=== PATIENT | female | born 1965 | race Caucasian/White ===

== ENCOUNTER → 2017-02-01 | Outpatient (CLI) | payer BC | END | disposition home or self-care (01) | LOC: CFH 07:21 | PROVIDERS: ATTEND Internal Medicine Hematology & Oncology | DX: D18.03 Hemangioma of intra-abdominal structures (principal); D69.3 Immune thrombocytopenic purpura; Z90.49 Acquired absence of other specified parts of digestive tract | CPT/HCPCS: 76700 ==

== ENCOUNTER 2017-04-01 12:09 | Inpatient (IN) | payer BC ==
[~2017-04-01] VITALS: Ht 165.1 cm; Wt 81.8 kg
[~2017-04-01 12:09] MED LIST: ATEN25TA PO; PRED20TA PO
[2017-04-01] MEDS ORDERED: SODIUM CHLORIDE 0.9% 1,000 ML IV ONE ×2 (13:05→14:49)
[2017-04-01 13:55] LABS: BLOOD UREA NITROGEN 7 mg/dL (7-18)
[2017-04-01] MEDS ORDERED: RITU10VI IV (13:55)
[2017-04-01 13:58] LABS: ASPARTATE AMINO TRANSFERASE 11 U/L (15-37)
[2017-04-01 14:14] LABS: HEMATOCRIT 45.7 % (34.6-47.8); HEMOGLOBIN 14.9 g/dL (11.7-16.4); WHITE BLOOD COUNT 8.2 x10^3/uL (3.4-10)
[2017-04-01] MEDS ORDERED: HYDROmorphone 1 MG/ML, 1ML ONE ×2 (14:48→15:45)
[2017-04-01] MEDS ORDERED: ONDANSETRON 2MG/ML, 2ML ONE (14:58)
[2017-04-01] MEDS ORDERED: SODIUM CHLORIDE 0.9% 1,000ML IVBOLUS ONE (15:00)
[2017-04-01] MEDS ORDERED: HYDROCORTISONE 100 MG INJ. IVPush ONE (15:00)
[2017-04-01] MEDS ORDERED: SODIUM CHLORIDE FLUSH 10ML SYR IVF ONE (15:00)
[2017-04-01] MEDS ORDERED: ONDANSETRON 2MG/ML, 2ML IVPush ONE (15:00)
[2017-04-01] MEDS: HYDROmorphone 1 MG/ML, 1ML IVPush PRN ×2 (15:05→15:49)
[2017-04-01] MEDS ORDERED: ONDANSETRON 2MG/ML, 2ML IVPush PRN (17:30)
[2017-04-01] MEDS ORDERED: ACETAMINOPHEN 325 MG TABLET PO PRN (17:30)
[2017-04-01] MEDS ORDERED: ONDANSETRON ODT 4 MG PO PRN (17:30)
[2017-04-01] MEDS ORDERED: DOCUSATE 100 MG CAPSULE PO PRN (17:30)
[2017-04-01] MEDS ORDERED: morphine SULFATE 10 MG/ML, 1ML IVPush PRN (17:30)
[2017-04-01] MEDS ORDERED: HYDROcodone/APAP 5/325 TABLET PO PRN (17:30)
[2017-04-01 19:57] VITALS: BP 146/88
[2017-04-01] MEDS: DIPHENHYDRAMINE 50 MG/ML, 1ML IVPush SCH (20:26)
[2017-04-01] MEDS: FAMOTIDINE 20 MG/2 ML IVPush SCH (22:52)
[2017-04-02] MEDS: DIPHENHYDRAMINE 50 MG/ML, 1ML IVPush SCH ×3 (01:39→12:21)
[2017-04-02] MEDS: methylPREDNISolone SOD SUCC 125 MG/2 ML IVPush SCH ×3 (01:39→16:24)
[2017-04-02 01:48] VITALS: BP 126/80
[2017-04-02 05:51] LABS: HEMATOCRIT 41.9 % (34.6-47.8); HEMOGLOBIN 13.5 g/dL (11.7-16.4); WHITE BLOOD COUNT 6.3 x10^3/uL (3.4-10)
[2017-04-02 06:00] LABS: BLOOD UREA NITROGEN 6 mg/dL (7-18)
[2017-04-02 06:05] LABS: ASPARTATE AMINO TRANSFERASE 14 U/L (15-37)
[2017-04-02 07:42] VITALS: BP 143/89
[2017-04-02] MEDS ORDERED: ATENOLOL 25 MG TABLET PO SCH (09:00)
[2017-04-02] MEDS: FAMOTIDINE 20 MG/2 ML IVPush SCH (09:29)
[2017-04-02 13:00] VITALS: BP 134/84
== END 2017-04-02 17:39 | disposition home or self-care (01) | DRG 565 ==
LOC: ED 15:13 → EDIP 16:32 → 4WST 18:53
PROVIDERS: ADMIT Internal Medicine; ATTEND Internal Medicine
DX: M25.441 Effusion, right hand (principal); D69.3 Immune thrombocytopenic purpura; I31.3 Pericardial effusion (noninflammatory); M79.89 Other specified soft tissue disorders; I10 Essential (primary) hypertension; M25.431 Effusion, right wrist; M25.432 Effusion, left wrist; M25.442 Effusion, left hand; T45.1X5A Adverse effect of antineoplastic and immunosuppressive drugs, initial encounter; E66.9 Obesity, unspecified; L53.9 Erythematous condition, unspecified; M13.0 Polyarthritis, unspecified; Z79.52 Long term (current) use of systemic steroids; Z90.49 Acquired absence of other specified parts of digestive tract; Z68.30 Body mass index [BMI] 30.0-30.9, adult; Z88.1 Allergy status to other antibiotic agents; Z88.0 Allergy status to penicillin; Z88.2 Allergy status to sulfonamides; Y92.89 Other specified places as the place of occurrence of the external cause; Z82.49 Family history of ischemic heart disease and other diseases of the circulatory system; Z83.3 Family history of diabetes mellitus
CPT/HCPCS: 36415; 71275; 80053; 80074; 81003; 83605; 84145; 85025; 85651; 87040; 93005; 93306; 96361; 96374; 96375; 96376; J1170; J2405; J1200; J1720; J2930; J7030; S0028